=== PATIENT | female | born 1950 | race Caucasian/White ===

== ENCOUNTER 2019-01-07 13:59 | Emergency (ER) | payer BC, MEDICARE ==
[~2019-01-07] VITALS: Ht 162.6 cm; Wt 70.3 kg
--- OUTSIDE RECORDS SUMMARY | 2019-01-07 14:01 | XMS REPORT ---
[facility] Address Unknown Phone Unavailable Care Team Providers Care Senior Ui Designer Name Role Phone Unavailable Unavailable Payers Payer Name Policy Type Policy Number Effective Date Expiration Date Problems This patient has no known problems. Allergies, Adverse Reactions, Alerts Allergy Name Allergy Type Status Severity Reaction(s) Onset Date Inactive Date Treating Clinician Comments No Known Allergies DA Active U 2018-10-17 00:00:00 No Known Allergies DA Active U 2016-08-07 00:00:00 Medications This patient has no known medications. Results Test Description Test Time Test Comments Text Results Atomic Results Result Comments - XR ANKLE 3 + V RT 2019-01-01 10:22:00 Name: JOSE ALFREDO CARTAGENA [facility] : 1950 Age/S:68 /F [address] Unit#:[id number] Loc: [place] [address] Phys: Mildred Howe MD Dis Date: PHONE #: [phone] Status: REG ER FAX #: [phone] Exam Date: 01/01/2019 Reason: ankle pain EXAMS: CPT CODE: [id number] XR ANKLE 3 + V RT [address]69 HISTORY: Ankle pain. COMPARISON: X-ray from August 01, 2017. 3 views of the right ankle: No acute fracture or dislocation. Ankle mortise is preserved. No osteochondral lesion of the talus is noted. Calcaneal enthesophyte. Bone mineralization and soft tissues are normal. IMPRESSION: No acute fracture or dislocation. Ankle mortise is preserved. No joint fluid. Electronically Signed by Evette Menendez on 2018 at 1022 Reported and signed by: Davin Menendez M.D. CC: Owen Shelton DO; Mildred Howe MD Technologist: Anni Mccartney Trnscrpt Data: 01/01/2019 (1022) [email or web address] Orig Print D/T: S: 0 01/01/2019 (8556) PAGE 1 Signed Report - US RETROPERITONEAL COM 2018-12-19 17:09:00 Name: JOSE ALFREDO CARTAGENA [facility] : 1950 Age/S: 68 / F [address] [facility] Unit #: [id number] Loc: [place] [address] Phys: Bill Membreno MD Acct: [id number] Dis Date: Status: REG CLI PHONE #: [phone] Exam Date: 12/19/2018 1621 FAX #: [phone] Reason: N17.9 EXAMS: CPT CODE: [id number] US RETROPERITONEAL COM 52890 EXAM: Ultrasound of the retroperitoneum; INFORMATION: N17.9; acute kidney failure; FINDINGS: The right kidney is of normal size and shape and measures 12.1 x 6.7 x 4.7 cm, with a parenchymal thickness of 2 cm. The left kidney is atrophic, measuring 7 x 3.6 x 1.9 cm, with a parenchymal thickness of 0.6 cm. There are several small left renal cysts, largest measures 1.6 cm. On the right side there is a 2.8 x 2.5 cm cyst. There is no evidence of h ydronephrosis or stones. Normal parenchymal echogenicity of the right kidney and slightly increased parenchymal echogenicity of the left kidney. The urinary bladder was unremarkable. IMPRESSION: 1. Atrophic left kidney with several small cysts. 2. Normal sized right kidney with single cyst. 3. No hydronephrosis or stones. at 8206 Reported and signed by: Emigdio Guerrero M.D. CC: Bill Membreno MD; Owen Shelton DO Technologist: [facility] Date/Time: 12/19/2018 (170) Dhruv Orig Print D/T: S: 12/19/2018 (9507) Probe: PAGE 1 Signed Report - MRI L-SPINE W/O CONT 2018-11-30 09:20:00 FAX: Y Owen Shelton DO [phone] [place]: St: REG Name: JOSE ALFREDO CARTAGENA [facility] : 1950 Age/S: 68/F [address] [facility] Unit #: [id number] Loc: [place] [address] Phys: Owen Shelton DO Acct: [id number] Dis Date: Status: REG CLI PHONE #: [phone] Exam Date: 11/30/2018 0911 FAX #: [phone] Reason: M79.905,M54.5 EXAMS: CPT CODE: [id number] MRI L-SPINE W/O CONT 17649 HISTORY: Low back pain and groin pain. COMPARISON: CT of abdomen and pelvis from November 16, 2018 and lumbar spine x-ray from November 10, 2018. MRI L-spine without contrast: Conus terminating at T12-L1 level without compression, syrinx or myelomalacia. Vertebral body heights are maintained. Bone marrow signal is within normal limits. No prevertebral soft tissue swelling. Grade 1 anterolisthesis of L5 over S1. Bilateral spondylolysis. Narrowed disc space at L5-S1 level. At T12-L1 level no disc herniation, canal or foraminal stenosis. At L1-L2 level no disc herniation, canal or foraminal stenosis. At L2-L3 level no disc herniation, canal or foraminal stenosis. At L3-L4 level no disc herniation, canal or foraminal stenosis. Mild facet hypertrophy. At L4-L5 level no disc herniation, canal or foraminal stenosis. Mild facet hypertrophy. At L5-S1 level posterior central lateral disc extrusion with approximately 1 cm with moderate canal and severe foraminal stenosis. Contact suspected with the exiting bilateral L5 nerve roots and the descending left S1 nerve root. Correlate with radicular symptoms. IMPRESSION: Posterior central and lateral disc extrusion of 1 cm resulting in moderate canal and severe foraminal stenosis with contact with exiting bilateral L5 nerve roots and the descending left S1 nerve root. Corre late with radicular symptoms. Grade 1 anterolisthesis of L5 over S1 with bilateral spondylolysis. at 0920 Reported and signed by: Davin Menendez M.D. PAGE 1 Signed Report (CONTINUED) FAX: Owen Cotto DO [phone] [place]: St: REG Name: JOSE ALFREDO CARTAGENA [facility] : 1950 Age/S: 68/F [address] [facility] Unit #: [id number] Loc: [place] [address] Phys: Owen Shelton DO Acct: [id number] Dis Date: Status: REG CLI PHONE #: [phone] Exam Date: 11/30/2018 0911 FAX #: [phone] Reason: M79.905,M54.5 EXAMS: CPT CODE: [id number] MRI L-SPINE W/O CONT 90922 <Continued> CC: Owen Shelton DO Technologist: RT CHRISTOPHER - MRI Trnscrd Date/Time/By: 11/30/2018 (919) : By: [email or web address] Orig Print D/T: S: 11/30/2018 (4579) PAGE 2 Signed Report - CT ABD PELVIS W/O CONT 2018-11-16 08:48:00 Name: JOSE ALFREDO CARTAGENA [facility] : 1950 Age/S: 67 / F [address] [employer] Unit #: [id number] Loc: [place] [address] Phys: Owen Shelton DO Acct: [id number] Dis Date: Status: REG CLI PHONE #: [phone] Exam Date: 11/16/2018 0745 FAX #: [phone] Reason: UTI, STONE EXAMS: CPT CODE: [id number] CT ABD PELVIS W/O CONT 78645 HISTORY: UTI and stones. COMPARISON: None available. CT abdomen and pelvis: Stone protocol. Automated exposure control. CT of abdomen: The lung bases are clear. Noncontrast liver is within normal limits measuring 15 cm in length. Granulomatous calcification. Patient is post cholecystectomy. The spleen is measuring 14 cm in length. 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 The stomach distends incompletely however it is within normal limits. Noncontrast pancreas and adrenals are normal. Severe atrophy of the left kidney. No hydroureteronephrosis on either side. No calyceal stones. Bosniak 1 lesion measuring 2.6 cm in the posterior lateral right interpolar region with average Hounsfield unit measurement of 9. No pathologic adenopathy. Atherosclerotic change of the abdominal and pelvic vasculature. No bowel obstruction or colitis or diverticulitis or enteritis. Mild diverticulosis on the left. CT PELVIS: Appendix is normal. Pelvic bowel loops are unobstructed with extensive sigmoid diverticulosis. No diverticulitis. Unremarkable well-distended urinary bladder. Patient is post hysterectomy. No free fluid or free air. No pelvic pathologic adenopathy. Subcutaneous tissues and musculature are normal in appearance. No lytic or blastic lesions are noted within the bony skeleton. DJD. Pars interarticularis fracture at L5-S1 level bilaterally with grade 1 anterolisthesis of L5 over S1 with marked loss of disc space and subchondral sclerosis of the endplates. PAGE 1 Signed Report (CONTINUED) Name: JOSE ALFREDO CARTAGENA [facility] : 1950 Age/S: 67 / F [address] Unit #: [id number] Loc: [place] [address] Phys: Owen Shelton DO Acct: [id number] Dis Date: Status: REG CLI PHONE #: [phone] Exam Date: 11/16/2018 0745 FAX #: [phone] Reason: UTI, STONE EXAMS: CPT CODE: [id number] CT ABD PELVIS W/O CONT 41758 <Continued> IMPRESSION: Normal appendix. No bowel obstruction or colitis or diverticulitis or enteritis. Unremarkable right kidney without hydroureteronephrosis or calyceal stones with Bosniak 1 lesion in the posterior lateral interpolar region measured 2.6 cm. Severe atrophy of the left kidney which appears nonfunctional. No free fluid or free air. Unremarkable well-distended urinary bladder. at 0848 Reported and signed by: Davin Menendez M.D. CC: Owen Shelton DO Technologist:Ag Jones RT(R),(MR),(CT) CTDI: DLP: Trnscb Date/Time: 11/16/2018 (0848) [email or web address] Orig Print D/T: S: 11/16/2018 (0851) CTDI: DLP: PAGE 2 Signed Report - XR HIP BI W/PELVIS 2018-11-10 18:50:00 FAX: Owen Cotto DO [phone] [place]: O St: REG Name: JOSE ALFREDO CARTAGENA [facility] : 1950 Age/S: 67/F [address] Unit #: [id number] Loc: [place] [address] Phys: Owen Shelton DO Acct: [id number] Dis Date: Status: REG CLI PHONE #: [phone] Exam Date: 11/10/20181731 FAX #: [phone] Reason: HIP PAIN AND LBP EXAMS: CPT CODE: [id number] XR HIP BI W/PELVIS 68255 EXAM: Pelvis, one view; INFORMATION: Hip pain; lower back pain; FINDINGS: Normal shape and structure of the imaged bones; no evidence of fracture or dislocation; hip joints are unremarkable. No soft tissue abnormalities. IMPRESSION: Normal study. at 1850 Reported and signed by: Emigdio Guerrero M.D. CC: Owen Shelton DO Technologist: RT Natalia(Karina) Trnscrd Date/Time/By: 11/10/2018 (1849) : By: AnandGRW Orig Print D/T: S: 11/10/2018 (1852) PAGE 1 Signed Report - XR L-SPINE 2/3 VIEWS 2018-11-10 18:47:00 FAX: Owen Cotto DO [phone] [place]: O St: REG Name: JOSE ALFREDO CARTAGENA [facility] : 1950 Age/S: 67/F [address] Unit #: [id number] Loc: [place] [address] Phys: Owen Shelton DO Acct: [id number] Dis Date: Status: REG CLI PHONE #: [phone] Exam Date: 11/10/20181731 FAX #: [phone] Reason: EXAMS: CPT CODE: [id number] XR L-SPINE 2/3 VIEWS 47471 EXAM: Lumbar spine, 3 views; INFORMATION: Lower back pain; FINDINGS: There is mild scoliosis of the lumbar spine and there is anterolisthesis of L5, over a distance of 16 mm. This is associated with almost complete obliteration of the L5/S1 disc space. There may be a pars defect which would probably be better demonstrated on the oblique views. The remainder of the lumbar spine shows good alignment. There is also mild narrowing of the disc spaces L1/2 and T11/12. Anterior osteophytes ar e seen along the endplates of T11-L3. There is diffuse osteoporosis. Paravertebral soft tissues are unremarkable. 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 Paravertebral soft tissues are unremarkable. IMPRESSION: 1. Grade 2 anterolisthesis of L5, probably associated with spondylolysis. 2. Advanced degenerative disc disease L5/S1. 3. 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 4. Small calcified aneury sm of the splenic artery. at 1847 Reported and signed by: Emigdio Guerrero M.D. CC: Owen Shelton DO Technologist: RT Natalia(Karina) Trnscrd Date/Time/By: 11/10/2018 (596) : By: AnandGRW Orig Print D/T: S: 11/10/2018 (569) PAGE 1 Signed Report
[2019-01-07] MEDS ORDERED: HYDROCODONE/APAP 10MG-325MG TAB PO ONE (14:15)
[2019-01-07 14:50] LABS: BASOPHILS % 0.2 % (0.0-1.0); EOSINOPHILS % 0.2 % (0.0-6.0); HEMATOCRIT 34.6 % (34.2-44.1); HEMOGLOBIN 10.7 g/dL (12.0-16.0); LYMPHOCYTES % 19.6 % (18.0-39.1); MEAN CORPUSCULAR HEMOGLOBIN 27.9 pg (28-32); MEAN CORPUSCULAR HGB CONC 30.9 g/dL (31-35); MEAN CORPUSCULAR VOLUME 90.1 fL (81-99); MONOCYTES # (AUTO) 0.9 (0.2-0.8); MONOCYTES % 8.5 % (4.4-11.3); NEUTROPHILS # (AUTO) 7.2 (2.1-6.9); PLATELET COUNT 260 x10e3/uL (140-360); RED BLOOD COUNT 3.84 x10e6/uL (3.6-5.1); RED CELL DISTRIBUTION WIDTH 14.1 % (11.7-14.4)
[2019-01-07 15:08] LABS: ALBUMIN 3.4 g/dL (3.5-5.0); ALBUMIN/GLOBULIN RATIO 0.8 (0.8-2.0); ANION GAP 10.8 mmol/L (8-16); CALCIUM 9.2 mg/dL (8.4-10.2); CREATININE, SERUM 1.14 mg/dL (0.57-1.11); MAGNESIUM 1.7 MG/DL (1.3-2.1); POTASSIUM 4.8 mmol/L (3.5-5.1)
[2019-01-07 15:22] LABS: BILIRUBIN,URINE NEGATIVE (NEGATIVE); CLARITY,URINE HAZY (CLEAR); COLOR,URINE YELLOW (YELLOW); KETONES,URINE NEGATIVE (NEGATIVE); LEUKOCYTE ESTERASE ,URINE 1+ (NEGATIVE); NITRITE,URINE NEGATIVE (NEGATIVE); PROTEIN,URINE DIPSTICK 1+ (NEGATIVE); URINE UROBILINOGEN 0.2 mg/dL (0.2 - 1)
[2019-01-07 16:03] LABS: EPITHELIAL CELLS,URINE MANY /LPF
[2019-01-07 16:10] LABS: BACTERIA,URINE FEW /HPF; TRANSITIONAL EPI CELLS,URINE MANY
[2019-01-07 16:11] LABS: RENAL EPITHELIAL CELLS,URINE MANY
[2019-01-07] MEDS ORDERED: CEFTRIAXONE SOD 1 GM VIAL IV ONE (16:15)
[2019-01-07] MEDS ORDERED: CEFTRIAXONE SOD 1 GM/NS 50 ML 50 ML IV ONE (16:45)
[2019-01-07] MEDS ORDERED: INDOMETHACIN 75 MG CAPCR PO ONE (18:00)
== END 2019-01-07 18:19 | disposition home or self-care (01) ==
LOC: ER 13:59
DX: M79.662 Pain in left lower leg (principal); M79.661 Pain in right lower leg; E10.40 Type 1 diabetes mellitus with diabetic neuropathy, unspecified; N39.0 Urinary tract infection, site not specified
CPT/HCPCS: 36415; 80053; 81001; 83735; 84550; 85025; 85379; 87086; 93970; 99284

== ENCOUNTER 2024-08-24 11:05 | Emergency (ER) | payer MEDICARE ==
[~2024-08-24] VITALS: Ht 162.6 cm; Wt 70.3 kg
[2024-08-24 11:20] VITALS: TEMP 98.4
[2024-08-24] MEDS: KETOROLAC TROMETHAMINE 30 MG/ML VIAL IM STA (12:47)
[2024-08-24] MEDS ORDERED: NAPROXEN250 MG PO (12:55)
[2024-08-24 13:45] VITALS: PULSE 91; RESP 16; O2SAT 95
== END 2024-08-24 13:45 | disposition home or self-care (01) ==
LOC: ER 11:27
DX: M25.522 Pain in left elbow (principal); M25.521 Pain in right elbow; M25.512 Pain in left shoulder; M25.511 Pain in right shoulder; M25.552 Pain in left hip; M25.551 Pain in right hip; M25.572 Pain in left ankle and joints of left foot; M25.571 Pain in right ankle and joints of right foot; I10 Essential (primary) hypertension; E11.9 Type 2 diabetes mellitus without complications; E78.5 Hyperlipidemia, unspecified
CPT/HCPCS: 99283; J1885